=== PATIENT | male | born 1990 | race Caucasian/White ===

== ENCOUNTER 2016-10-27 14:27 | Emergency (ER) | payer SELFPAY ==
[~2016-10-27] VITALS: Ht 177.8 cm; Wt 93.0 kg
--- NOTE | 2016-10-27 14:30 | NUR ---
Receive patient awake, initially with no verbal response, moves all extremities, skin warm and dry, minimal eyes tracking noted. Patient eventually answered some questions after the staff assured the patient that " We are not the police."
[2016-10-27 14:54] LABS: BASOPHILS # (AUTO) 0.1 K/uL (0.0-8.0); BASOPHILS % (AUTO) 1.5 % (0.0-2.0); EOSINOPHILS % (AUTO) 0.2 % (0.0-7.0); HEMATOCRIT 43.5 % (40-50); HEMOGLOBIN 14.2 G/DL (14.0-18.0); LYMPHOCYTES # (AUTO) 1.6 K/UL (0.8-4.8); MEAN CORPUSCULAR HEMOGLOBIN 28.6 UUG (27.0-31.0); MEAN CORPUSCULAR HGB CONC 33 g/dL (32.0-37.0); MEAN CORPUSCULAR VOLUME 87.7 FL (82.0-92.0); MONOCYTES # (AUTO) 0.6 K/UL (0.1-1.30); MONOCYTES % (AUTO) 6.4 % (0.0-11.0); NEUTROPHILS # (AUTO) 7.6 K/UL (1.8-8.9); NEUTROPHILS % (AUTO) 75.9 % (38.5-71.5); PLATELET COUNT (AUTO) 402 K/UL (150-450); RED BLOOD CELL COUNT(AUTO) 4.96 MIL/UL (4.7-6.1); WHITE BLOOD COUNT (AUTO) 9.9 K/UL (4.0-11.2)
[2016-10-27 14:57] LABS: CARBON DIOXIDE 30 mmol/L (21-32); CHLORIDE 101 mmol/L (98-107); CREATININE 1.2 mg/dL (0.6-1.3); GLUCOSE 102 mg/dL (74-106); POTASSIUM 4.1 mmol/L (3.5-5.1); UREA NITROGEN, BLOOD 16 mg/dL (7-18)
--- NOTE | 2016-10-27 15:02 | NUR ---
Patient sometimes answers staff's inquiry/questions, ANTOLIN, respiration:easy
[2016-10-27 15:03] LABS: ALANINE AMINOTRANSFERASE 62 U/L (16-63); ALKALINE PHOSPHATASE 132 U/L (50-136); ASPARTATE AMINOTRANSFERASE 25 U/L (15-37); BILIRUBIN,DIRECT 0.1 mg/dL (0.0-0.2); BILIRUBIN,TOTAL 0.3 mg/dL (0.2-1.0); TOTAL PROTEIN, SERUM 8.6 g/dL (6.4-8.2)
[2016-10-27 15:10] LABS: ETHANOL < 3 MG/DL (0-0)
--- NOTE | 2016-10-27 15:34 | NUR ---
Patient is eating sandwich with good appetite. Juice & bottled water are at bedside.
--- NOTE | 2016-10-27 16:00 | NUR ---
100% of sandwich, juice & water are all consumed by patient. Wound care done by nurse Uday. Patient is resting comfortably in bed with eyes closed. PATIENT IS PAIN FREE AT THIS TIME.
--- NOTE | 2016-10-27 16:13 | NUR ---
Urine sent to lab. Patient voided by urinal. Patient was seen moving briskly from supine to standing without assistance. IV removed. Catheter intact and site benign. Pressure and 4x4 gauze applied to site. No bleeding noted.
[2016-10-27 16:16] LABS: *BILIRUBIN,URIN NEGATIVE (NEGATIVE); *BLOOD, URINE NEGATIVE (NEGATIVE); *CLARITY,URINE CLEAR (CLEAR); *COLOR,URINE YELLOW (YELLOW); *KETONES,URINE NEGATIVE (NEGATIVE); *PROTEIN,URINE TRACE (NEGATIVE); *UROBILINOGEN,URINE 0.2 E.U./dl (NORMAL); LEUKOCYTE ESTERASE ,URINE NEGATIVE (NEGATIVE); NITRITE, URINE NEGATIVE (NEGATIVE); UGLUCOSE NEGATIVE (NEGATIVE)
--- NOTE | 2016-10-27 16:18 | NUR ---
Patient discharged to home in stable conditon. Written and verbal after care instructions given to patient. Patient verbalizes understanding of instructions. Patient is able to say his name, place and time correctly, ambulating with brisk steady gait.
[2016-10-27 16:22] LABS: BACTERIA,URINE FEW /HPF (NONE SEEN); RBC,URINE 0-3 /HPF (0-3); SQUAMOUS EPITHELIAL CELL,UR FEW /HPF (NONE SEEN); WBC,URINE 0-3 /HPF (0-3)
[2016-10-27 16:25] LABS: *AMPHETAMINE, URINE NEGATIVE (NEGATIVE); *BARBITURATE, URINE NEGATIVE (NEGATIVE); *CANNABINOID, URINE NEGATIVE (NEGATIVE); *COCCAINE, URINE NEGATIVE (NEGATIVE); *OPIATE, URINE POSITIVE (NEGATIVE); *PHENCYCLIDINE SCREEN,URINE POSITIVE (NEGATIVE)
== END 2016-10-27 16:20 | disposition home or self-care (01) ==
LOC: ER 14:27
DX: R41.82 Altered mental status, unspecified (principal)
CPT/HCPCS: 36415; 71010; 80048; 80076; 80307; 81001; 82140; 84484; 85025; 85730; 93005; 96360; 99285; A4663; G0480; J7030; 70030-TC